=== PATIENT | female | born 1975 | race Caucasian/White ===

== ENCOUNTER 2016-06-29 18:45 | Emergency (ER) | payer OTHER ==
[2016-06-29] MEDS ORDERED: HYDROcod/ACET 5/325 Prepack 6 PO STA (19:52)
[2016-06-29] MEDS ORDERED: HYDROcod/ACET 5/325 Prepack 6 PO ONE (19:59)
== END 2016-06-29 20:39 | disposition home or self-care (01) ==
DX: S93.601A Unspecified sprain of right foot, initial encounter (principal); W10.9XXA Fall (on) (from) unspecified stairs and steps, initial encounter; Y92.009 Unspecified place in unspecified non-institutional (private) residence as the place of occurrence of the external cause; R03.0 Elevated blood-pressure reading, without diagnosis of hypertension

== ENCOUNTER 2019-01-14 04:35 | Outpatient (CLI) | payer OTHER | END 2019-01-14 04:36 | disposition critical access hospital (66) | LOC: EMS 04:35 | PROVIDERS: ATTEND Surgery | DX: M54.2 Cervicalgia (principal); M54.9 Dorsalgia, unspecified; R07.9 Chest pain, unspecified; V40.5XXA Car driver injured in collision with pedestrian or animal in traffic accident, initial encounter; Y92.413 State road as the place of occurrence of the external cause | CPT/HCPCS: A0425; A0427 ==

== ENCOUNTER 2019-01-14 05:18 | Emergency (ER) | payer OTHER ==
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
[2019-01-14] MEDS ORDERED: IBUPROFEN 600 MG TABLET PO STA (05:32)
[2019-01-14] MEDS ORDERED: ACETAMINOPHEN 325 MG TABLET PO STA (05:32)
[2019-01-14] MEDS ORDERED: ONDANSETRON 4 MG/2 ML VIAL IVP STA (05:46)
[2019-01-14] MEDS ORDERED: ONDANSETRON 4 MG/2 ML VIAL ONE (05:59)
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
[2019-01-14] MEDS ORDERED: METHOCARBAMOL 500 MG TABLET PO STA (06:50)
[2019-01-14 07:00] LABS: HCG,QUALITATIVE BLOOD NEGATIVE
[2019-01-14 07:17] VITALS: BP 173/97
== END 2019-01-14 07:15 | disposition home or self-care (01) ==
LOC: EDUNIT# → ED 05:18
DX: Z04.1 Encounter for examination and observation following transport accident (principal); M54.2 Cervicalgia; R07.89 Other chest pain; L53.9 Erythematous condition, unspecified; I10 Essential (primary) hypertension
CPT/HCPCS: 36415; 71045; 72125; 73502; 84703; 99283; 99284; A9270

== ENCOUNTER 2020-02-01 14:06 | Emergency (ER) | payer OTHER, MEDICAID ==
[2020-02-01] MEDS ORDERED: KETOROLAC 30 MG/ML VIAL IM STA (16:40)
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
--- NOTE | 2020-02-01 17:10 | CT Report ---
PROCEDURE: HEAD WO INDICATIONS: concussion TECHNIQUE: Noncontrast 4.5 mm thick angled axial sections acquired from the foramen magnum to the vertex. For r adiation dose reduction, the following was used: automated exposure control, adjustment of mA and/or kV according to patient size. COMPARISON: None. FINDINGS: Image quality: Excellent. CSF spaces: Basal cisterns are patent. No extra-axial fluid collections. Ventricles are normal in size and shape. Brain: No midline shift. No intracranial masses or hemorrhage. Watts-white matter interface is norm al. Skull and face: Calvarium and visualized facial bones are intact, without suspicious lesions. Sinuses: Visualized sinuses and mastoids are clear. IMPRESSION: Normal for age, no trauma found. Reviewed by: Fazal Kim MD on 02/01/2020 5:09 PM [facility] Approved by: Fazal Kim MD on 02/01/2020 5:09 PM [facility] Station ID: [id number]
[2020-02-01 18:39] VITALS: BP 142/90
== END 2020-02-01 17:30 | disposition home or self-care (01) ==
LOC: ED 14:06
DX: S06.0X0A Concussion without loss of consciousness, initial encounter (principal); Y04.2XXA Assault by strike against or bumped into by another person, initial encounter; Y92.009 Unspecified place in unspecified non-institutional (private) residence as the place of occurrence of the external cause; I10 Essential (primary) hypertension
CPT/HCPCS: 70450; 96372; 99284

== ENCOUNTER 2021-04-02 21:26 | Emergency (ER) | payer MEDICAID, OTHER ==
--- NOTE | 2021-04-02 21:37 | ED Physician Documentation ---
PD HPI LOWER EXT INJURY - Stated complaint Stated Complaint: GLF/LEFT KNEE PX - History obtained from History obtained from: Patient - History of Present Illness PD HPI LOW EXT INJURY LOCATION: Left, Knee Type of injury: Fall Where injury occurred: Other ([place]) Timing - onset: Enter time (20:30), Today Timing - details: Abrupt onset Improved by: Rest Worsened by: Moving, Palpating Associated symptoms: No: Weakness, Numbness Recently seen: Not recently seen - Additional information Additional information: patient was [place] and at approximately 8:30 PM, she was making the approach to bowl when her shoe caught on something, causing her to fall forward, struck left knee on floor. She c/o left knee pain that is worse with movement, palpation.Denies other injury Review of Systems Musculoskeletal: reports: Joint pain, Pain with weight bearing. denies: Neck pain, Back pain Neurologic: denies: Focal weakness, Numbness PD PAST MEDICAL HISTORY - Past Medical History Cardiovascular: Hypertension Respiratory: None Endocrine/Autoimmune: None GI: None HEENT: None Psych: None Musculoskeletal: None Derm: None - Past Surgical History Past Surgical History: No - Present Medications Home Medications: Ambulatory Orders Medication Instructions Recorded Confirmed HYDROcod/ACETAM 5/325 [[place] 5/325] 1 - 2 tablet PO Q6H PRN #14 tablet 04/02/21 - Allergies Allergies/Adverse Reactions: Allergies Allergy/AdvReac Type Severity Reaction Status Date / Time No Known Drug Allergies Allergy Verified 04/02/21 21:41 - Social History Does the pt smoke?: No Smoking Status: Never smoker Does the pt drink ETOH?: Yes Does the pt have substance abuse?: No - Immunizations Immunizations are current?: Yes - POLST Patient has POLST: No PD ED PE NORMAL - Vitals Vital signs reviewed: Yes - General General: Alert and oriented X 3, No acute distress, Well developed/nourished - Neuro Neuro: No motor deficit, No sensory deficit PD ED PE EXPANDED - Extremities Extremities: Tenderness, Limited ROM, Left knee (TTP medial aspect of knee as well as tibial tuberosity) Results - Vitals Vitals: Vital Signs - 24 hr 04/02/21 21:37 Temperature 36.4 C L Heart Rate 71 Respiratory 16 Rate Blood Pressure 206/108 H O2 Saturation 98 Oxygen O2 Source Room air - Rads (name of study) left knee xrays Radiology: Prelim report reviewed, See rad report PD MEDICAL DECISION MAKING - ED course Complexity details: reviewed results, re-evaluated patient, considered differential, d/w patient ED course: presents with left knee pain due to slip/trip and fall while bowling tonight. Xrays of the left knee are negative for fracture. Knee immobilizer is placed and crutches provided. She has had adequate pain relief with tylenol and ibuprofen she took HEAD WAITER and thus declines analgesia in ED. I anticipate her pain will incre ase over the next 1-2 days and thus, after discussing this option, she agrees with rx for vicodin should the ibuprofen become ineffective. [facility] [place]. I am prescribing a short course of short-acting opioid pain medication for this patient. 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 I have discussed that the opioids are for short term therapy only, and will not be refilled from the ED Departure - Departure Disposition: 01 Home, Self Care Clinical Impression: Left knee sprain Condition: Good Instructions: ED Crutch Walking, ED Immobilizer Knee, ED Sprain Knee Prescriptions: HYDROcod/ACETAM 5/325 [[place] 5/325] 1 - 2 tablet PO Q6H PRN #14 tablet PRN Reason: Pain Comments: Follow up with your primary care provider in 5-7 days for reevaluation. Your xrays show a small effusion (small amount of fluid in/around the knee joint, which is common with knee injury) but no evidence of fracture/break. You can weight-bear as tolerated, but use the crutches to minimize weight- bearing for the first 2-3 days, and then as needed if weight-bearing remains painful. A prescription for hydrocodone with acetaminophen (pain medication) has been electronically submitted to [facility] in [place]. You can use ibuprofen for pain, but you can use the hydrocodone/acetaminophen for severe pain or pain that is not controlled with ibuprofen. I am prescribing a short course of narcotic pain medication for you. These are potentially dangerous and addictive medications that should be used carefully. These medications may constipate you. Take an zgiu-itl-gugbdew stool softener (docusate) twice daily with plenty of water while taking these medications. If you go 24 hours without a bowel movement, take ryaa-ykw-mbxrngx miralax, per package instructions. Do not drink or drive while taking these medications. If you received narcotic or sedating medications while in the emergency department, do not drive for 24 hours. Store this medication in a safe, secure place and out of reach of children. It is a violation of federal law to give or sell this medication to another person or to use in a manner other than prescribed. The ED will not refill narcotic prescriptions, including prescriptions lost or stolen. To dispose of unwanted medications: 1. [facility] at [address] in [place] has a medication drop box. They accept prescription medications (in pill form) Thursday through Thursday 9:00 a.m. to 5:00 p.m. 2. The [facility] [employer] accepts prescription medications (in pill form only) for disposal year round. Call for more information. 3. Contact the [facility] for the next [facility] sponsored prescription drug collection event. , [phone], or [phone];
--- NOTE | 2021-04-02 22:07 | XRAY Report ---
PROCEDURE: Knee 3 View LT INDICATIONS: fall, injury, tenderness TECHNIQUE: 3 views of the left knee were acquired. COMPARISON: None. FINDINGS: Bones: No fractures or dislocations. No suspicious bony lesions. Soft tissues: There is a small joint effusion. No suspicious soft tissue calcifications. IMPRESSION: 1. No fracture or dislocation. 2. Small left knee joint effusion. Reviewed by: Dov Nix MD on 04/02/2021 10:06 PM [facility] Approved by: Dov Nix MD on 04/02/2021 10:06 PM [facility] Station ID: [id number]
[2021-04-02 22:50] VITALS: BP 221/113
== END 2021-04-02 22:50 | disposition home or self-care (01) ==
LOC: ED 21:26
DX: S83.92XA Sprain of unspecified site of left knee, initial encounter (principal); W01.0XXA Fall on same level from slipping, tripping and stumbling without subsequent striking against object, initial encounter; Y93.54 Activity, bowling; Y92.838 Other recreation area as the place of occurrence of the external cause; I10 Essential (primary) hypertension
CPT/HCPCS: 99283